=== PATIENT | female | born 1985 | race Caucasian/White ===

== ENCOUNTER 2017-04-09 12:26 | Day surgery (SDC) | payer BC ==
[2017-04-09] MEDS ORDERED: ALPRAZolam 0.5 MG TAB PO ONE (12:31)
[2017-04-09 13:06] VITALS: RESP 16; TEMP 97.6
--- NOTE | 2017-04-09 14:17 | US ---
ULTRASOUND GUIDED FNA THYROID BIOPSY: CLINICAL HISTORY: Request for for FNA thyroid nodules FINDINGS: The procedure was explained to the patient. The risks, complications, benefits and alternatives were discussed and any questions were answered. Informed consent was obtained. Patient was placed supin e on the ultrasound table and prepped and draped in the usual sterile fashion. Utilizing a 25 gauge needle, five passes were made into the 2 right-sided thyroid nodules, isthmus nodule and large left t hyroid nodule. Patient was stable throughout the procedure. Pathology is pending. All elements of maximal barrier technique were utilized. IMPRESSION: 1. Successful ultrasound guided FNA thyroid biopsy of 4 thyroid nodules.
[2017-04-09] MEDS ORDERED: HYDROcodone/APAP 5-325MG 1 EACH TAB PO STA (14:25)
[2017-04-09 15:02] VITALS: BP 133/60; PULSE 80
== END 2017-04-09 15:12 | disposition home or self-care (01) ==
LOC: RADPROMAIN 12:26
PROVIDERS: ATTEND Surgery
DX: E04.1 Nontoxic single thyroid nodule (principal)
CPT/HCPCS: 10022; 76942; 88173; 88305